=== PATIENT | female | born 1965 | race Two or more races ===

== ENCOUNTER 2019-04-27 19:36 | Emergency (ER) | payer MEDICAID ==
[~2019-04-27] VITALS: Ht 154.9 cm; Wt 63.5 kg
[2019-04-27 22:00] VITALS: BP 154/93
[2019-04-27] MEDS ORDERED: ONDANSETRON ODT 4 MG TAB PO ONE (22:30)
[2019-04-27] MEDS ORDERED: MORPHINE SULF INJ 2 MG/ML SYRINGE 1ML IM ONE (22:30)
== END 2019-04-27 23:22 | disposition home or self-care (01) ==
LOC: ER 19:40
DX: R42 Dizziness and giddiness (principal); R51 Headache; J40 Bronchitis, not specified as acute or chronic; W18.09XA Striking against other object with subsequent fall, initial encounter; Y93.89 Activity, other specified; Y92.89 Other specified places as the place of occurrence of the external cause; Y99.8 Other external cause status
CPT/HCPCS: 70450; 72125; 96372; 99284; J2270; Q0162

== ENCOUNTER 2024-08-27 13:43 | Emergency (ER) | payer MEDICAID ==
[~2024-08-27] VITALS: Ht 172.7 cm; Wt 73.0 kg
[2024-08-27 14:32] VITALS: BP 134/86; PULSE 99; RESP 16; TEMP 97.8; O2SAT 96
[2024-08-27] MEDS: HYDROcodone-ACET 5/325MG TAB PO ONE (15:19)
[2024-08-27] MEDS: KETOROLAC TROMETH 30 MG/ML 1ML VIAL IM ONE (15:20)
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
[2024-08-27] MEDS ORDERED: ACET500T58 PO (16:23)
[2024-08-27] MEDS ORDERED: CYCL-837 PO (16:23)
[2024-08-27] MEDS ORDERED: IBUP-1454 PO (16:23)
--- NOTE | 2024-08-28 12:35 | ECG ---
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
== END 2024-08-27 16:21 | disposition home or self-care (01) ==
LOC: ER 13:43 → EDBD 13:43 → ER 16:21
DX: M79.18 Myalgia, other site (principal); R07.89 Other chest pain; M25.512 Pain in left shoulder; M54.2 Cervicalgia; V43.52XA Car driver injured in collision with other type car in traffic accident, initial encounter; Y93.I9 Activity, other involving external motion; Y92.488 Other paved roadways as the place of occurrence of the external cause; Y99.8 Other external cause status
CPT/HCPCS: 71045; 72040; 93005; 96372; 99284; J1885